=== PATIENT | male | born 2000 | race Two or more races ===

== ENCOUNTER 2018-01-09 11:11 | Emergency (ER) | payer BC ==
[2018-01-09 11:19] VITALS: RESP 16
--- NOTE | 2018-01-09 11:22 | EDPHY ---
H & P Stated Complaint: cp Source: Patient Exam Limitations: No limitations - Personal History Current Tetanus/Diphtheria Vaccine: Yes Current Tetanus Diphtheria and Acellular Pertussis (TDAP): Yes - Medical/Surgical History Hx Asthma: No Hx Chronic Respiratory Disease: No Hx Diabetes: No Hx Cardiac Disease: No Hx Renal Disease: No Hx Cirrhosis: No Hx Alcoholism: No Hx HIV/AIDS: No Hx Splenectomy or Spleen Trauma: No - Social History Smoking Status: Never smoked Time Seen by Provider: 01/09/18 11:22 HPI/ROS: HPI: This is a 17-year-old male who presents with Chief Complaint: Epigastric pain, nausea, vomiting Location: Chest Quality: Discomfort Duration: Started at 7:12 a.m. this morning Signs and Symptoms: no fever, no nausea, no vomiting, no hematemesis, no blood in stool, no abdominal bloating, no diarrhea, no back pain, no urinary symptoms , no testicular/groin pain, no indigestion, no chest pain, no shortness of breath Timing: Improving Severity: Moderate Context: Patient is generally healthy, smokes marijuana frequently, presents from urgent care with complaints of sudden onset of anterior, bilateral, upper chest pain near clavicles waking him up from his sleep around 7:12 a.m. this morning. He reports that he felt panic and short of breath at rest. Pain was not reproducible but improved with sitting forward. He drank some water and the symptoms improved. He then smoked more marijuana and the pain improved. No history of lung disease. He reports that he has a basketball injury and has not been working now or exercising for the last week. No recent foreign travel. Denies fever/cough/lower extremity edema or swelling. Denies alcohol use within the last 48 hr and intravenous drug use. Denies any recent upper respiratory symptoms. Modifying Factors: Marijuana and drinking water with moderate improvement Comment: ROS: see HPI Constitutional: No fever, no chills, no weight loss Eyes: No blurred vision Respiratory: + shortness of breath, no cough Cardiovascular: + chest pain, no palpitations Gastrointestinal: No nausea, no vomiting, no diarrhea, no hematemesis, no blood in stool Genitourinary: No dysuria, no blood in urine Extremities: No myalgias, no edema Neurologic: No weakness, no numbness Skin: No rashes, no petechiae Hematologic: No bruising, no bleeding MEDICAL/SURGICAL/SOCIAL HISTORY: Medical history: Generally healthy. Does not take any regular medications. Surgical history: Denies Social history: Student.. CONSTITUTIONAL: Extremely well-appearing teenage male, awake and alert, no obvious distress HEENT: Atraumatic and normocephalic, PERRL, EOMI. Tympanic membranes clear. Oropharynx clear, no exudate and moist pink mucosa. Airway patent. No lymphadenopathy. No meningismus. Cardiovascular: Normal S1/S2, no pericardial rub, regular rate, regular rhythm, without murmur rub or gallop. PULMONARY/CHEST: Symmetrical and nontender. Clear to auscultation bilaterally. Good air movement. No accessory muscle usage. ABDOMEN: Soft, nondistended, nontender, no rebound, no guarding, no peritoneal signs, no masses or organomegaly. No CVAT. EXTREMITIES: 2/2 pulses, strength 5/5, no deformities, no clubbing, no cyanosis or edema. NEUROLOGICAL: no focal neuro deficits. GCS 15. SKIN: Warm and dry, no erythema. no rash. Good capillary refill. (Marjan Mora) Constitutional: Initial Vital Signs Temperature (C) 36.9 C 01/09/18 11:16 Heart Rate 99 01/09/18 11:16 Respiratory Rate 16 01/09/18 11:16 Blood Pressure 133/75 H 01/09/18 11:16 O2 Sat (%) 96 01/09/18 11:16 O2 Delivery Mode Room Air Allergies/Adverse Reactions: No Known Allergies Allergy (Unverified 01/09/18 11:16) Home Medications: Medication Instructions Recorded Colchicine [Colchicine (*)] 0.6 mg PO BID #30 tab 01/09/18 Ibuprofen 600 mg PO Q8 #42 tablet 01/09/18 Medical Decision Making - Diagnostics EKG Interpretation: EKG: Complete interpretation has been separately recorded in the [facility] archive. Summary impression: Sinus rhythm, ST segment elevation suggestive of pericarditis (Henry Vital) Imaging Results: Imaging Impressions Chest X-Ray 01/09/18 11:31 Impression: Normal. ED Course/Re-evaluation: EKG, chest x-ray, labs, IV fluids, IV medications ordered Vital signs reviewed upon arrival in stable. Given 1 L normal saline, IV Toradol with moderate relief of symptoms Chest x-ray my read shows no effusion, no opacity, no pneumothorax, no widened mediastinum EKG my read shows lead 2; Spodick's sign; ST elevation changes Labs reviewed: WBC 14K, normal ESR, no signs of PE/acute kidney injury/ACS/ electrolyte imbalance/transaminitis Based on pericarditis diagnostic rule; 2 out of the 4 criteria; echocardiogram ordered to evaluate for pericardial effusion. Pericarditis etiology viral versus idiopathic; Given p.o. colchicine 0.6 mg Reassessed patient who reports adequate relief of discomfort. Discussed his diagnosis, treatment plan, and follow-up thoroughly at bedside Called by Dr. Clovis Easton, cardiology, who advised that echocardiogram shows no significant pericardial effusion. Agrees with ibuprofen Q8 and colchicine twice daily. Will see for follow-up in 2 weeks. This patient was seen under the supervision of my secondary supervising physician. I evaluated care for this patient independently. Discussed this patient with Dr. Vital who saw the patient. (Marjan Mora) Differential Diagnosis: Shortness of breath including but not limited to pulmonary infectious process, asthma, pulmonary embolus, pneumonitis and pericarditis. (Marjan Mora) Other Provider: Independent physician evaluation I evaluated and participated in the management of the patient. I also evaluated the patient independently. My co-signature indicates that I have reviewed this chart and I agree with the findings and plan of care as documented. My personal H&P findings include: The patient presents the ED with a 1 day history of anterior chest pain which is positional in nature. The patient denies prior history of the symptoms. He denies any recent upper respiratory infection. The patient denies any significant past medical history. Physical exam General Appearance: Alert, no distress Eyes: Pupils equal and round no pallor or injection ENT, Mouth: Mucous membranes moist Respiratory: There are no retractions, lungs are clear to auscultation, no rubs Cardiovascular: Regular rate and rhythm Gastrointestinal: Abdomen is soft and nontender, no masses, bowel sounds normal Neurological: A&O, normal motor function, normal sensory exam, normal cranial nerves Skin: Warm and dry, no rashes Musculoskeletal: Neck is supple nontender Extremities: symmetrical, full range of motion ED course: The patient's presentation is consistent with pericarditis. Echocardiogram demonstrates no evidence of an effusion. The patient does feel better after IV Toradol. Consultation was made with Dr. Easton from Cardiology who will see the patient in follow-up 2 weeks. (Henry Vital) - Data Points Laboratory Results: Laboratory Results 01/09/18 11:53 01/09/18 11:53 01/09/18 01/09/18 01/09/18 11:53 11:53 11:53 WBC RBC Hgb Hct MCV MCH MCHC RDW Plt Count MPV Neut % (Auto) Lymph % (Auto) [place] % (Auto) Eos % (Auto) Baso % (Auto) Nucleat RBC Rel Count Absolute Neuts (auto) Absolute Lymphs (auto) Absolute Monos (auto) Absolute Eos (auto) Absolute Basos (auto) Absolute Nucleated RBC Immature Gran % Immature Gran # ESR D-Dimer 0.28 ug/mLFEU ug/mLFEU (0.00-0.50) Sodium 143 mEq/L mEq/L (135-145) Potassium 4.1 mEq/L mEq/L (3.5-5.2) Chloride 104 mEq/L mEq/L (97-110) Carbon Dioxide 22 mEq/l mEq/l (22-31) Anion Gap 17 mEq/L H mEq/L (8-16) BUN 12 mg/dL mg/dL (7-23) Creatinine 0.7 mg/dL mg/dL (0.7-1.3) Estimated GFR > 60 Glucose 113 mg/dL H mg/dL (70-100) Calcium 10.5 mg/dL H mg/dL (8.5-10.4) Total Bilirubin 0.4 mg/dL mg/dL (0.1-1.4) Conjugated Bilirubin 0.2 mg/dL mg/dL (0.0-0.5) Unconjugated Bilirubin 0.2 mg/dL mg/dL (0.0-1.1) AST 26 IU/L IU/L (17-59) ALT 40 IU/L IU/L (21-72) Alkaline Phosphatase 103 IU/L IU/L (38-126) Creatine Kinase 108 IU/L IU/L (0-224) Troponin I < 0.012 ng/mL ng/mL (0.000-0.034) Total Protein 7.6 g/dL g/dL (6.3-8.2) Albumin 4.7 g/dL g/dL (3.5-5.0) Lipase 50 IU/L IU/L (23-300) 01/09/18 11:53 WBC 14.79 10^3/uL H 10^3/uL (3.80-9.50) RBC 5.16 10^6/uL 10^6/uL (4.40-6.38) Hgb 15.4 g/dL g/dL (13.7-17.5) Hct 46.3 % % (40.0-51.0) MCV 89.7 fL fL (81.5-99.8) MCH 29.8 pg pg (27.9-34.1) MCHC 33.3 g/dL g/dL (32.4-36.7) RDW 12.2 % % (11.5-15.2) Plt Count 301 10^3/uL 10^3/uL (150-400) MPV 9.5 fL fL (8.7-11.7) Neut % (Auto) 79.1 % H % (39.3-74.2) Lymph % (Auto) 13.6 % L % (15.0-45.0) [place] % (Auto) 6.5 % % (4.5-13.0) Eos % (Auto) 0.1 % L % (0.6-7.6) Baso % (Auto) 0.3 % % (0.3-1.7) Nucleat RBC Rel Count 0.0 % % (0.0-0.2) Absolute Neuts (auto) 11.70 10^3/uL H 10^3/uL (1.70-6.50) Absolute Lymphs (auto) 2.01 10^3/uL 10^3/uL (1.00-3.00) Absolute Monos (auto) 0.96 10^3/uL H 10^3/uL (0.30-0.80) Absolute Eos (auto) 0.02 10^3/uL L 10^3/uL (0.03-0.40) Absolute Basos (auto) 0.04 10^3/uL 10^3/uL (0.02-0.10) Absolute Nucleated RBC 0.00 10^3/uL 10^3/uL (0-0.01) Immature Gran % 0.4 % % (0.0-1.1) Immature Gran # 0.06 10^3/uL 10^3/uL (0.00-0.10) ESR 4 MM/HR MM/HR (0-15) D-Dimer Sodium Potassium Chloride Carbon Dioxide Anion Gap BUN Creatinine Estimated GFR Glucose Calcium Total Bilirubin Conjugated Bilirubin Unconjugated Bilirubin AST ALT Alkaline Phosphatase Creatine Kinase Troponin I Total Protein Albumin Lipase Medications Given: Discontinued Medications Colchicine (Colchicine) 0.6 mg PO EDNOW ONE Stop: 01/09/18 13:10 Last Admin: 01/09/18 13:41 Dose: 0.6 mg Sodium Chloride (Ns) 1,000 mls @ 0 mls/hr IV EDNOW ONE; Wide Open PRN Reason: Protocol Stop: 01/09/18 11:31 Last Admin: 01/09/18 12:22 Dose: 1,000 mls Ketorolac Tromethamine (Toradol) 30 mg IVP EDNOW ONE Stop: 01/09/18 11:32 Last Admin: 01/09/18 12:23 Dose: 30 mg Departure - Departure Disposition: Home, Routine, Self-Care Clinical Impression: Pericarditis Qualifiers: Pericarditis type: idiopathic Chronicity: acute Qualified Code(s): I30.0 - Acute nonspecific idiopathic pericarditis Condition: Good Instructions: Acute Pericarditis (ED) Additional Instructions: Take ibuprofen 600 mg every 8 hr and Colchicine 0.6 mg twice daily. You are to follow up with Dr. Easton, cardiology, in 2 weeks. Call his office tomorrow to obtain appointment date and time. Stop smoking marijuana immediately Referrals: ALEJANDRO VILLALOBOS [Other] - As per Instructions Clovis Easton MD [Medical Doctor] - As per Instructions Prescriptions: Colchicine [Colchicine (*)] 0.6 mg PO BID #30 tab Ibuprofen 600 mg PO Q8 #42 tablet
[2018-01-09] MEDS ORDERED: NS 1,000 ML IV ONE (11:30)
[2018-01-09] MEDS ORDERED: KETOROLAC 30 MG/1 ML SDV IVP ONE (11:31)
[2018-01-09 12:05] LABS: PLATELET COUNT 301 10^3/uL (150-400)
--- NOTE | 2018-01-09 12:09 | CPEKG ---
Heart Rate: 81 RR Interval: 741 P-R Interval: 156 QRSD Interval: 84 QT Interval: 376 QTC Interval: 437 P [place]: 43 QRS [place]: 64 T Wave [place]: 41 EKG Severity - ABNORMAL ECG - EKG Impression: SINUS RHYTHM EKG Impression: ST ELEVATION SUGGESTS PERICARDITIS Electronically Signed By: Henry Vital 09-Jan-2018 13:40:58
[2018-01-09 12:17] LABS: CREATINE KINASE 108 IU/L (0-224)
[2018-01-09] MEDS ORDERED: COLCHICINE 0.6 MG CAP/TAB PO ONE (13:09)
[2018-01-09 14:13] VITALS: BP 123/76; PULSE 76; TEMP 98.6; O2SAT 96
--- NOTE | 2018-01-09 14:29 | ECHO ---
[email or web address] [address] [address] Main: [phone] Fax: [email or web address] Echocardiogram Name: RADHA MONZON MR#: [id number] Study Date: 01/09/2018 Study Time: 01:24 PM Date of : 2000 Age: 17 year(s) Height: 177.8 cm (70 in.) Weight: 83.92 kg (185 lb.) BSA: 2.02 m2 Gender: Male Examination: Echo Indication: Chest pain/pericarditis/eval effusion Image Quality: Contrast: Requested by: Marjan Mora BP: 121 mmHg/70 mmHg Heart Rate: Rhythm: Indication: Chest pain/pericarditis/eval effusion Procedure Staff Aerial Advertiser: Barbara Lance [facility] Reading Physician: Clovis Easton Requesting Provider: Conclusions: Normal size left ventricle. No LV hypertrophy. Normal global systolic LV function. The ejection fraction is estimated to be 65-70 %. No regional wall motion abnormality. Normal size right ventricle. The left atrium is normal in size. The right atrium is normal in size. Trivial mitral valve regurgitation. The aortic valve is normal in appearance and function. Trivial tricuspid valve regurgitation. The pulmonic valve is normal in appearance and function. The aorta is normal. No pericardial effusion. Measurements: Chambers Valvular Assessment AV/MV Valvular Assessment TV/PV Normal Normal Normal Name Value Range Name Value Range Name Value Range Ao Danielle (MM): 3.2 cm (2.2 cm-3.7 AV Vmax: 1.34 m/s (1 m/s-1.7 TR Vmax: 1.79 mm/s ( - ) cm) m/s) TR PGmax: 13 mmHg ( - ) IVSd (2D): 1.0 cm (0.6 cm-1.1 AV maxP mmHg ( - ) syst. PAP: 18 mmHg ( - ) cm) AV meanP mmHg ( - ) LVDd (2D): 5.0 cm (4.2 cm-5.9 MV E Vmax: 0.84 m/s ( - ) cm) MV A Vmax: 0.36 m/s ( - ) LVDs (2D): 3.1 cm (2.1 cm-4 MV E/A: 2.33 ( - ) cm) LVPWd (2D): 0.6 cm (0.6 cm-1 cm) LVEF (MOD4): 71 % (>=55 %) Patient: RADHA MONZON Study Date: 01/09/2018 Page 1 of 2 01:24 PM EF Range: 65-70 % Continued Measurements: Chambers Valvular Assessment AV/MV Valvular Assessment TV/PV Name Value Name Value Name Value LADs: 3.2 cm MV E/E' Septal: 7.70 CVP (est.): 5 mmHg LADs Lon.7 cm MV E/E' Lateral: 6.70 LA Area: 19.4 cm2 Findings: Left Ventricle: Normal size left ventricle. No LV hypertrophy. Normal global systolic LV function. The ejection fraction is estimated to be 65-70 %. No regional wall motion abnormality. Right Ventricle: Normal size right ventricle. Left Atrium: The left atrium is normal in size. Right Atrium: The right atrium is normal in size. Mitral Valve: The mitral valve is normal in appearance and function. Trivial mitral valve regurgitation. Aortic Valve: The aortic valve is normal in appearance and function. Tricuspid Valve: The tricuspid valve is normal in appearance and function. Trivial tricuspid valve regurgitation. Pulmonic Valve: The pulmonic valve is normal in appearance and function. Aorta: The aorta is normal. Pericardium: No pericardial effusion. (No Signature Object) Patient: RADHA MONZON Study Date: 01/09/2018 Page 2 of 2 01:24 PM [id number]
== END 2018-01-09 14:13 | disposition home or self-care (01) ==
DX: I30.0 Acute nonspecific idiopathic pericarditis (principal); E86.9 Volume depletion, unspecified
CPT/HCPCS: 96374; J1885